=== PATIENT | male | born 1990 | race Caucasian/White ===

== ENCOUNTER 2020-10-09 11:53 | Emergency (ER) | payer SELFPAY ==
[2020-10-09 12:09] VITALS: BP 137/80; PULSE 90; RESP 16; TEMP 37.2; O2SAT 98; BMI 39.9
[2020-10-09 12:18] LABS: UTC Strep Screen (Rapid) Positive (Negative)
--- NOTE | 2020-10-09 12:26 | HMH.EDUTC ---
[facility] Disposition Clinical Impression: Strep throat Disposition: Home, Self-Care Condition on Discharge: Good Instructions: Strep Throat, DI for Strep Throat Additional Instructions: Drink plenty of fluids. Take tylenol or ibuprofen for pain or fever. Take the medications as directed. Follow up with your regular doctor. GO TO THE ER FOR ANY WORSENING SYMPTOMS Throw your tooth brush away and get a new one. Prescriptions: Ondansetron [Zofran 4mg ODT] 4 mg PO Q8HP PRN #12 tab.rapdis PRN Reason: Nausea Transmission Status: Received by [facility] predniSONE [Deltasone 10mg tablet] 10 mg PO BID 3 Days #6 tab Transmission Status: Received by [facility] Penicillin V Potassium 500 mg PO BID 10 Days #20 tab Transmission Status: Received by [facility] Referrals: Provider,Referral, MD [Primary Care Provider] - Forms: Work/School Release Time of Disposition: 12:43 Medical Decision Making - Medical Records Medical records reviewed: No: I reviewed the patient's medical records. - Usama Inquiry Pt receiving controlled substance: No Vital Signs: 10/09/20 12:09 10/09/20 12:41 Temperature 98.9 F 98.9 F Temperature Source Oral Pulse Rate 90 Pulse Rate [Right Brachial] 90 Respiratory Rate 16 16 Blood Pressure 137/80 Blood Pressure [Right Arm] 137/80 Blood Pressure Mean [Right Arm] 99 Blood Pressure Source [Right Arm] Automatic Cuff Blood Pressure Position [Right Arm] Sitting 02 Sat by Pulse Oximetry 98 Oxygen Delivery Method Room Air - Lab Data Lab Results 10/09/20 12:17: Strep [facility] Positive A Orders (Tests/Meds): ED MEDICATIONS Discontinued Medications Generic Name Dose Route Start Last Admin Trade Name Freq PRN Reason Stop Dose Admin Ibuprofen 800 mg 10/09/20 12:49 10/09/20 12:50 Ibuprofen 400 Mg Tablet PO 10/09/20 12:50 800 mg ONCE ONE Administration [facility] HPI - General Stated complaint: has knot in throat Time Seen by Provider: 10/09/20 12:26 Mode of Arrival: Ambulatory Source of Information: Patient Limitations: No Limitations Description of Symptoms (Recalled from Triage Doc. by RN): PATIENT C/O KNOT IN THROAT THAT IS AFFECTING HIS ABILITY TO EAT OR DRINK X 2 DAYS HEENT Symptoms (Recalled from RN notes): Yes Resp Symptoms (Recalled from RN notes): No Skin Symptoms (Recalled from RN notes): No MS Symptoms (Recalled from RN notes): No Functional Status (Recalled from RN notes): WNL - History of Present Illness Provider Complaint: He states that for the past 2 days he has had sore throat and felt very bad. He has had nausea and poor appetite also. He denies any fever. - Related Data Previous Rx's Medication Instructions Recorded Ondansetron [Zofran 4mg ODT] 4 mg PO Q8HP PRN #12 tab.rapdis 10/09/20 Penicillin V Potassium 500 mg PO BID 10 Days #20 tab 10/09/20 predniSONE [Deltasone 10mg tablet] 10 mg PO BID 3 Days #6 tab 10/09/20 Allergies Allergy/AdvReac Type Severity Reaction Status Date / Time No Known Allergies Allergy Verified 10/09/20 12:13 - Worker's Comp Is this a Worker's Comp case?: No [facility] History - Hepatitis A Screen Drug use history?: No High risk sexual behaviors?: No History of sexually transmitted infection?: No Currently employed?: No Childcare worker?: No Do you have indoor plumbing?: Yes Do you have electricity?: Yes Attestation statement:: This patient has been screened for Hepatitis A risk factors. I have reviewed the patient's past medical history: Yes - Social History Alcohol Intake: never Occupational Status: other ROS Obtained: Yes All systems reviewed & no additional complaints Physical Exam - General General appearance: alert, in no apparent distress - Head Head exam: atraumatic, normocephalic, normal inspection - Eye Eye exam: Present: normal appearance, PERRL, EOMI - ENT ENT exam: Presen
[2020-10-09 12:41] VITALS: BP 137/80; PULSE 90; RESP 16; TEMP 37.2; O2SAT 98
== END 2020-10-09 12:56 | disposition home or self-care (01) ==
PROVIDERS: Emergency Provider Nurse Practitioner Family
DX: J02.0 Streptococcal pharyngitis (principal)
CPT/HCPCS: 87880; 99202; G0463

== ENCOUNTER 2022-04-07 22:52 | Emergency (ER) | payer SELFPAY ==
[2022-04-07 22:53] VITALS: BP 144/93; PULSE 81; RESP 18; TEMP 36.9; O2SAT 99; BMI 39.9
--- NOTE | 2022-04-07 23:18 | ECG_ITS ---
APPROVED REPORT Exam: Resting ECG HR:74 bpm ECG Measurements Heart Rate 74 AXES NH 196 P 60 QRSd 86 QRS 58 QT 346 T 4 QTc 373 Conclusion SINUS RHYTHM WITH SINUS ARRHYTHMIA NONSPECIFIC T-WAVE ABNORMALITY BORDERLINE ECG UNCONFIRMED REPORT Electronically signed by : Migel Crocker MD 04/08/2022 18:08:38
[2022-04-07 23:20] VITALS: BP 139/85; BP 143/94; BP 144/82; PULSE 75; PULSE 80; PULSE 82
--- NOTE | 2022-04-07 23:21 | XR_ITS ---
PROCEDURE INFORMATION: Exam: XR Chest Exam date and time: 04/07/2022 11:45 PM Age: 31 years old Clinical indication: Other: Dizziness; Additional info: Dizzy TECHNIQUE: Imaging protocol: Radiologic exam of the chest. Views: 2 views. COMPARISON: No relevant prior studies available. FINDINGS: Lungs: Unremarkable. No consolidation. Pleural spaces: Unremarkable. No pleural effusion. No pneumothorax. Heart/Mediastinum: Unremarkable. No cardiomegaly. Bones/joints: Unremarkable. IMPRESSION: No acute findings.
--- NOTE | 2022-04-07 23:21 | CT_ITS ---
PROCEDURE INFORMATION: Exam: CT Head Without Contrast Exam date and time: 04/08/2022 12:51 AM Age: 31 years old Clinical indication: Dizziness; Additional info: Dizzy, started 04/07/22 am TECHNIQUE: Imaging protocol: Computed tomography of the head without contrast. Radiation optimization: All CT scans at this facility use at least one of these dose optimization techniques: automated exposure control; mA and/or kV adjustment per patient size (includes targeted exams where dose is matched to clinical indication); or iterative reconstruction. COMPARISON: No relevant prior studies available. FINDINGS: Brain: Normal. No hemorrhage. Unremarkable white matter. No mass effect. Cerebral ventricles: No ventriculomegaly. Paranasal sinuses: Visualized sinuses are unremarkable. No fluid levels. Mastoid air cells: Visualized mastoid air cells are well aerated. Bones/joints: Unremarkable. No acute fracture. Soft tissues: Unremarkable. IMPRESSION: No acute intracranial abnormality.
[2022-04-07 23:27] LABS: Basophils # 0.1 K/mm3 (0-0.2); Basophils % 1.1 % (0.1-2.0); Eosinophils # 0.3 K/mm3 (0.0-0.4); Eosinophils % 2.5 % (0.1-12.0); Hematocrit 45.7 % (42.0-52.0); Hemoglobin 15.1 g/dL (14.1-18.0); Lymphocytes # 3.4 K/mm3 (0.7-4.5); Lymphocytes % 31.3 % (10-50); Mean Corpuscular HGB Conc 33.1 g/dL (31.8-35.4); Mean Corpuscular Hemoglobin 30.8 pg (27.0-31.2); Mean Corpuscular Volume 93.1 fl (80-94); Mean Platelet Volume 7.4 fl (7.4-10.4); Monocytes # 0.7 K/mm3 (0.1-1.0); Monocytes % 6.2 % (1.7-9.3); Neutrophils # 6.4 K/mm3 (1.8-7.8); Neutrophils % 58.8 % (37.0-80.0); Platelet Count 413 K/mm3 (142-424); Red Blood Count 4.91 M/mm3 (4.60-6.20); Red Cell Distribution Width 13.5 % (11.5-17.5); White Blood Count 10.9 K/mm3 (4.8-10.8)
[2022-04-07 23:29] LABS: Chloride 100 mmol/L (98-107); Potassium 4.6 mmoL/L (3.5-5.1); Sodium 139 mmol/L (136-145)
[2022-04-07 23:30] VITALS: BP 144/93; PULSE 79; O2SAT 99
[2022-04-07 23:32] LABS: Alanine Aminotransferase 34 U/L (12-78); Albumin Level 4.4 g/dl (3.5-5.0); Albumin/Globulin Ratio 1.2 (1.1-1.8); Alkaline Phosphatase 89 U/L (38-126); Anion Gap 12.6 mEq/L (5-15); Aspartate Amino Transferase 36 U/L (17-59); Bilirubin,Total 0.2 mg/dl (0.2-1.3); Blood Urea Nitrogen 12 mg/dl (9-20); Calcium 9.8 mg/dl (8.4-10.2); Carbon Dioxide 31 mmol/L (22.0-30.0); Creatinine Clearance Estimated 181 mL/min (50-200); Estimated Glomerular Filt Rate 98 ml/min (>60); GFR (African American) 118 ML/MIN (>60); Globulin 3.7 g/dL (1.3-3.2); Glucose 100 mg/dl (74-100); Total Protein,Serum 8.1 g/dl (6.3-8.2)
--- NOTE | 2022-04-07 23:52 | PC.NURSE ---
Pt gone to RAD
[2022-04-07 23:54] LABS: Troponin I < 0.01 ng/ml (0.00-0.034)
--- NOTE | 2022-04-07 23:59 | PC.NURSE ---
Pt back from RAD
[2022-04-08 00:01] VITALS: BP 143/91; PULSE 78; O2SAT 98
[2022-04-08 00:03] LABS: Thyroid Stimulating Hormone 2.48 uIU/mL (0.465-4.68)
[2022-04-08 00:09] LABS: Free T4 (Free Thyroxine) 0.93 ng/dl (0.78-2.19)
[2022-04-08 00:31] VITALS: BP 157/84; PULSE 75; O2SAT 97
[2022-04-08 01:01] VITALS: BP 125/79; PULSE 72; O2SAT 96
--- NOTE | 2022-04-08 01:21 | PC.NURSE ---
Rechecked pt condition. No needs or complaints voiced.
--- NOTE | 2022-04-08 01:37 | HMH.EDDIZZ ---
Discharge Plan Disposition Patient Disposition: Home, Self-Care Chief Complaint: Dizziness Prescriptions Prescriptions: No Action penicillin V potassium 500 MG tablet 500 mg PO BID 10 Days Qty: 20 0RF prednisone 10 MG tablet 10 mg PO BID 3 Days Qty: 6 0RF ondansetron 4 MG tablet,disintegrating 4 mg PO Q8HP PRN (Reason: Nausea) Qty: 12 0RF Referrals Follow up/Referrals: Provider,Referral, MD [Primary Care Provider] - See instructions Clinical Impressions Clinical Impression: Near syncope Instructions Patient Instructions: Dizziness, Nonvertigo Discharge ED Provider: Joseph Montiel Dizzy HPI General Chief Complaint: Dizziness Stated Complaint: Black out (2) BP 143/104 Time Seen by Provider: 04/08/22 01:37 Mode of Arrival: Ambulatory Source of Information: Patient and Medical Record Limitations: No Limitations Description of Symptoms (Recalled from ER Triage Doc. by RN): pt states that he passed out this morning and again at work tonight. before pt passed out pt states he get dizzy and light headed. pt denied any loc History of Present Illness HPI Narrative: dizzyness this am and again at work with near syncope w/o sz or chest pain and no def palpitation MD complaint: dizziness and near syncope Onset (ago): hour(s) Timing: sudden onset Description: lightheadedness History of similar episodes: No History of trauma: No Severity: moderate Associated symptoms: denies other symptoms Related Data Previous Rx's Medication Instructions Recorded ondansetron 4 mg disintegrating 4 mg PO Q8HP PRN Nausea ##12 10/09/20 tablet penicillin V potassium 500 mg 500 mg PO BID 10 days #20 tabs 10/09/20 tablet prednisone 10 mg tablet 10 mg PO BID 3 days #6 tabs 10/09/20 Allergies Allergy/AdvReac Type Severity Reaction Status Date / Time No Known Allergies Allergy Verified 10/09/20 12:13 PFSH PFS Social History Smoking Status: Current every day smoker alcohol intake: never current occupational status: other Travel in the last 8 weeks: None ROS Obtained: Yes All systems reviewed & no additional complaints except as documented Physical Exam General General appearance: alert Head Head exam: normocephalic Eye Eye exam: Present PERRL and EOMI; Absent nystagmus ENT ENT exam: Present normal oropharynx and other (no evid of tongue biting ) Neck Neck exam: Present trachea midline Respiratory Respiratory exam: Absent respiratory distress Cardiovascular Cardiovascular exam: Present regular rate; Absent systolic murmur Abdominal Exam Abdominal exam: Present soft Extremities Exam Extremities exam: Present full ROM Neurological Exam Neurological exam: Present alert, oriented X3, CN II-XII intact and other (gcs=15); Absent motor sensory deficit Skin Skin exam: Absent rash Medical Decision Making Medical Records Medical records reviewed: Yes I reviewed the patient's medical records. Usama Inquiry Pt receiving controlled substance: No Vital Signs: 04/07/22 22:53 04/07/22 23:20 04/07/22 23:30 Temperature 98.5 F Temperature Source Oral Pulse Rate 79 Pulse Rate [Orthostatic Lying] 75 Pulse Rate [Orthostatic Sitting] 80 Pulse Rate [Orthostatic Standing] 82 Pulse Rate [Right] 81 Respiratory Rate 18 Blood Pressure 144/93 H Blood Pressure [Orthostatic Lying] 139/85 Blood Pressure [Orthostatic Sitting] 143/94 H Blood Pressure [Orthostatic Standing] 144/82 H Blood Pressure [Right Arm] 144/93 H Blood Pressure Mean Blood Pressure Mean [Right Arm] 110 02 Sat by Pulse Oximetry 99 99 Oxygen Delivery Method Room Air 04/08/22 00:01 04/08/22 00:31 04/08/22 01:01 Temperature Temperature Source Pulse Rate 78 75 72 Pulse Rate [Orthostatic Lying] Pulse Rate [Orthostatic Sitting] Pulse Rate [Orthostatic Standing] Pulse Rate [Right] Respiratory Rate Blood Pressure 143/91 H 157/84 H 125/79 Blood Pressure [Orthostatic Lying
--- NOTE | 2022-04-08 01:41 | PC.NURSE ---
spoke with rocío OSHEA to notified of holter monitor order
--- NOTE | 2022-04-08 01:45 | PC.NURSE ---
Dr. Montiel at
[2022-04-08 02:11] VITALS: BP 124/73; PULSE 70; RESP 18; TEMP 36.9; O2SAT 97
== END 2022-04-08 02:12 | disposition home or self-care (01) ==
PROVIDERS: Emergency Provider Emergency Medicine
DX: R55 Syncope and collapse (principal)
CPT/HCPCS: 70450; 71046; 80053; 84439; 84443; 84484; 85025; 93005; 93225; 93226; 99285

== ENCOUNTER 2023-07-08 21:21 | Emergency (ER) | payer SELFPAY ==
[2023-07-08 21:29] VITALS: BP 140/93; PULSE 89; RESP 17; TEMP 36.9; O2SAT 99; BMI 42.4
--- NOTE | 2023-07-08 21:45 | HMH.EDGENADL ---
Discharge Plan Disposition Patient Disposition: Home, Self-Care Prescriptions Prescriptions: New ibuprofen 800 mg tablet 800 mg PO TID PRN (Reason: pain) 7 Days Qty: 20 0RF cyclobenzaprine 5 mg tablet 5 mg PO TID PRN (Reason: muscle spasm) 5 Days Qty: 15 0RF No Action penicillin V potassium 500 MG tablet 500 mg PO BID 10 Days Qty: 20 0RF prednisone 10 MG tablet 10 mg PO BID 3 Days Qty: 6 0RF ondansetron 4 MG tablet,disintegrating 4 mg PO Q8HP PRN (Reason: Nausea) Qty: 12 0RF Referrals Follow up/Referrals: Provider,Referral, MD [Primary Care Provider] - See instructions Clinical Impressions Clinical Impression: Lumbosacral strain Stand Alone Forms Stand Alone Forms: Work/School Release Instructions Patient Instructions: DI for Low Back Pain Discharge ED Provider: Kaia Davison General Adult HPI General Chief complaint: Back Pain/Injury Stated complaint: burning pain in lower back Time Seen by Provider: 07/08/23 21:37 Mode of Arrival: Family Vehicle Source of Information: Patient Limitations: No Limitations Description of Symptoms (Recalled from ER Triage Doc. by RN): 33 YO MALE PRESENTS W/CC OF BILAT LUMBAR PAIN THAT RADIATES DOWN HIS RIGHT LEG FOLLOWING LIFTING A LARGE GUN SAFE YESTERDAY. DESCRIBES IT PERSISTENT, NOTHING ALLEVIATES, IBUPROFEN DOESN'T HELP. STATES IT IS BURNING AND SHARP. I DON'T GO TO DR WOODWARD . PMH: HTN IS ALL HE KNOWS. NO PREVIOUS SURGICAL BACK HISTORY. DENIES CHANGE IN BOWEL BLADDER HABITS; History of Present Illness HPI narrative: Is a 33-year-old male presents today with right paraspinal lumbar pain after moving yesterday. States that he did not have any immediate pain and started to hurt after he was finished moving. States he was moving a 400 pounds gun safe which is what he believes caused the pain. Denies any midline pain denies any bowel or bladder incontinence urinary retention lower extremity weakness saddle anesthesia history of injection drug use fevers chills or any other symptoms. States he tried to go to work tonight could not specifically asked for a work excuse as well. Related Data Previous Rx's Medication Instructions Recorded ondansetron 4 mg disintegrating 4 mg PO Q8HP PRN Nausea ##12 10/09/20 tablet penicillin V potassium 500 mg 500 mg PO BID 10 days #20 tabs 10/09/20 tablet prednisone 10 mg tablet 10 mg PO BID 3 days #6 tabs 10/09/20 cyclobenzaprine 5 mg tablet 5 mg PO TID PRN muscle spasm 5 07/08/23 days #15 tabs ibuprofen 800 mg tablet 800 mg PO TID PRN pain 7 days #20 07/08/23 tabs Allergies Allergy/AdvReac Type Severity Reaction Status Date / Time No Known Allergies Allergy Verified 10/09/20 12:13 [facility] Disclaimer: The information contained in this section may have been updated after the patient was seen, as this information can be updated by other users. Social History Smoking Status: Unknown if ever smoked alcohol intake: never current occupational status: other Travel in the last 8 weeks: None ROS Obtained: Yes All systems reviewed & no additional complaints except as documented Physical Exam General General appearance: alert Respiratory Respiratory exam: Present normal lung sounds bilaterally Cardiovascular Cardiovascular exam: Present regular rate Back Exam Back exam: Present other (No midline lumbar spine tenderness there is tenderness of the paraspinal musculature in the right lumbosacral region normal neurovascular exam distal to this) Neurological Exam Neurological exam: Present alert Medical Decision Making Usama Inquiry Pt receiving controlled substance: No Vital Signs: 07/08/23 21:29 Temperature 98.5 F Temperature Source Oral Pulse Rate [Right Brachial] 89 Respiratory Rate 17 Blood Pressure [Right Arm] 140/93 H Blood Pressure Mean [Right Arm] 108 Blood Pressure Source [Right Arm] Automatic Cuff Blood Pressure Position [Right Arm] Sitting 02 Sat by Pulse Oximetry 99 Oxygen Delivery Method Room Air Orders (Tests/Meds): ED MEDICATIONS Generic Name Dose Route Start Last Admin Trade Name Arturo PRN Reason Stop Dose Admin Cyclobenzaprine HCl 5 mg 07/08/23 21:42 Cyclobenzaprine 10mg Tablet PO 07/08/23 21:43 ONCE ONE Ibuprofen 800 mg 07/08/23 21:42 Ibuprofen 400 Mg Tablet PO 07/08/23 21:43 ONCE ONE Lidocaine 1 each 07/08/23 21:42 Lidocaine 5% Transdermal Patch TP 07/08/23 21:43 ONCE ONE Medical Decision Narrative: 33-year-old with no red flags from history or physical standpoint regarding nontraumatic lower back pain. This is consistent with lumbosacral strain with heavy moving of objects x-ray. Ibuprofen Flexeril topical lidocaine were given to the emergency department prescription given to him he was advised to take 2 days off of work and to return with any worsening symptoms as discussed. Patient was discharged in stable condition Critical Care Critical Care Time Critical Care Time: No
[2023-07-08] MEDS: LIDOCAINE 5% TRANSDERMAL PATCH 1 EACH TP (22:03)
[2023-07-08] MEDS: CYCLOBENZAPRINE 10MG TABLET 5 MG PO (22:03)
[2023-07-08] MEDS: IBUPROFEN 400 MG TABLET 800 MG PO (22:04)
[2023-07-08 22:12] VITALS: BP 140/97; PULSE 89; RESP 17; TEMP 36.9; O2SAT 99
== END 2023-07-08 22:13 | disposition home or self-care (01) ==
PROVIDERS: Emergency Provider Student in an Organized Health Care Education/Training Program
DX: S39.012A Strain of muscle, fascia and tendon of lower back, initial encounter (principal); M79.604 Pain in right leg; X50.0XXA Overexertion from strenuous movement or load, initial encounter
CPT/HCPCS: 99283

== ENCOUNTER 2024-09-29 09:42 | Emergency (ER) | payer BC, SELFPAY ==
[2024-09-29 10:03] VITALS: BP 150/94; PULSE 74; RESP 18; TEMP 36.9; O2SAT 97; BMI 44.1
--- NOTE | 2024-09-29 10:21 | ED_ITS ---
Discharge Plan Disposition Patient Disposition: Home, Self-Care Prescriptions Prescriptions: New prednisone 20 mg tablet 40 mg PO DAILY 5 Days Qty: 10 0RF methocarbamol 750 mg tablet 1,500 mg PO TID 5 Days Qty: 30 0RF Discontinued penicillin V potassium 500 MG tablet 500 mg PO BID 10 Days Qty: 20 0RF prednisone 10 MG tablet 10 mg PO BID 3 Days Qty: 6 0RF cyclobenzaprine 5 mg tablet 5 mg PO TID PRN (Reason: muscle spasm) 5 Days Qty: 15 0RF No Action ondansetron 4 MG tablet,disintegrating 4 mg PO Q8HP PRN (Reason: Nausea) Qty: 12 0RF ibuprofen 800 mg tablet 800 mg PO TID PRN (Reason: pain) 7 Days Qty: 20 0RF Referrals Follow up/Referrals: Provider,Referral, MD [Primary Care Provider] - See instructions Activity Restrictions/Add. Instructions Additional Instructions/Restrictions: Prednisone each day after waking up. Robaxin 3 times daily for spasms. Robaxin can cause you to feel drowsy. Do not drive, operate heavy machinery, or engage in any activity that may make you tired, fall asleep, and because harm to yourself or others while taking this medication. Call your family doctor to establish care for this visit to the emergency department and schedule follow-up within 48 hours to ensure improvement. If you have any worsening of your condition or any other concerning signs or symptoms, return to the emergency department or your primary care doctor for further evaluation. Clinical Impressions Clinical Impression: Lower back pain Instructions Patient Instructions: DI for Low Back Pain Print Language Print Language: Romansh Discharge ED Provider: Godwin Cifuentes General Adult HPI General Chief complaint: Back Pain/Injury Stated complaint: Pain in Lower back-no accident Time Seen by Provider: 09/29/24 10:03 Mode of Arrival: Ambulatory Source of Information: Patient Description of Symptoms (Recalled from ER Triage Doc. by RN): pt presents to the ED with lower back pain that began on Thursday when he woke up. pt reports that the pain radiates down legs. Pt states the pain just come and goes . No trouble with urination at the time. History of Present Illness HPI narrative: Please note that above description of symptoms, in this electronic medical record under categorization of recalled from ER triage doctor by RN are reflective of an initial nursing assessment, however, is not reflective of my full history and physical exam that was personally taken and clarified. Consequentially, this preceding description of symptoms, which may include the patient's categorized chief complaint in the EMR, do not reflect my personal clinical impression, and the ultimate description of history of present illness and patient stated complaints should be deferred to this section of the note. Unless stated otherwise or congruent with this section of the note, additional signs, symptoms, or incongruence should be interpreted as inaccurate with my clinical impression. Related Data Previous Rx's ?Medication ?Instructions ?Recorded ondansetron 4 mg disintegrating 4 mg PO Q8HP PRN Nausea ##12 10/09/20 tablet ibuprofen 800 mg tablet 800 mg PO TID PRN pain 7 days #20 07/08/23 tabs methocarbamol 750 mg tablet 1,500 mg (2 x 750 mg) PO TID 5 09/29/24 days #30 tabs prednisone 20 mg tablet 40 mg (2 x 20 mg) PO DAILY 5 days 09/29/24 #10 tabs Allergies Allergy/AdvReac Type Severity Reaction Status Date / Time No Known Allergies Allergy Verified 10/09/20 12:13 [facility] Disclaimer: The information contained in this section may have been updated after the patient was seen, as this information can be updated by other users. Social History Smoking Status: Current every day smoker alcohol intake: never current occupational status: other Travel in the last 8 weeks?: None Have you lived/traveled outside [place] in past 30 days?: No Contact w/someone who lives/traveled outside US past 30 days?: No Exposure to someone with infectious disease in past 14 days?: No Do you have a fever (greater than 100.4 F or 38 C)?: No Have you tested positive for COVID-19?: No Exposed to someone with COVID-19 in past 14 days?: No Do you have a sore throat?: No Do you have a cough?: No Do you have any weakness?: No Do you have any diarrhea?: No Are you experiencing any unusual bleeding?: No Do you have any muscle aches/pain?: Yes Do you have any abdominal pain?: No Are you experiencing loss of taste or smell?: No ROS Obtained: Yes All systems reviewed & no additional complaints except as documented Physical Exam General General appearance: alert Head Head exam: atraumatic and normocephalic Eye Eye exam: Present normal appearance, PERRL and EOMI Neck Neck exam: Present normal inspection, full ROM and trachea midline Respiratory Respiratory exam: Absent respiratory distress, wheezes, stridor, accessory muscle use or prolonged expiratory phase Cardiovascular Cardiovascular exam: Present other (Pulses equal symmetric in upper and lower extremities) Abdominal Exam Abdominal exam: Present soft; Absent distention, tenderness or pulsatile mass Extremities Exam Extremities exam: Absent edema Neurological Exam Neurological exam: Present alert, oriented X3 and CN II-XII intact; Absent motor sensory deficit Skin Skin exam: Present warm and dry; Absent diaphoresis or erythema Medical Decision Making Medical Records Medical records reviewed: Yes I reviewed the patient's medical records. Screening: Per USPSTF and CDC recommendations, given the prevalence of disease in our region, it is our hospital?s policy to screen for HIV and viral Hepatitis for all patients aged 18 and over and those with ongoing risk factors. Usama Inquiry Pt receiving controlled substance: No Usama was queried for this patient: No Vital Signs: 09/29/24 10:03 Temperature 98.4 F Temperature Source Oral Pulse Rate [Right] 74 Respiratory Rate 18 Blood Pressure [Right Arm] 150/94 H Blood Pressure Mean [Right Arm] 112 Blood Pressure Source [Right Arm] Automatic Cuff Blood Pressure Position [Right Arm] Supine 02 Sat by Pulse Oximetry 97 Oxygen Delivery Method Room Air Orders (Tests/Meds): ED MEDICATIONS Discontinued Medications Generic Name Dose Route Start Last Admin Trade Name Bryantq PRN Reason Stop Dose Admin Dexamethasone 10 mg 09/29/24 10:20 09/29/24 10:48 Dexamethasone 4mg Tablet PO 09/29/24 10:21 10 mg ONCE ONE Administration Ketorolac Tromethamine 15 mg 09/29/24 10:20 09/29/24 10:47 Ketorolac 30mg/Ml Vial IM 09/29/24 10:21 15 mg ONCE ONE Administration Methocarbamol 1,500 mg 09/29/24 10:20 09/29/24 10:48 Methocarbamol 500mg Tablet PO 09/29/24 10:21 1,500 mg ONCE ONE Administration Medical Decision Narrative: 34-year-old male presenting with back pain. He has back pain in the past. States has been going on the last few days and has not been getting better. Radiating from the middle of his lower back to bilateral hips. No loss of continence of bowel or bladder, no saddle anesthesia, no weakness in his legs. States that twisting, changes in position make it worse, laying down makes it better. Has not taken anything for the pain, came in for further evaluation. On arrival, very clinically well-appearing male no acute distress. He does have midline spinal tenderness in his lumbosacral spine, but no outward signs of abnormality. Ambulatory, range of motion of back appears to be normal. Paraspinal muscle tightness consistent with potential spasm. Differential includes radiculopathy, neuropathy, osteoarthritis, degenerative disc disease, less likely to be conus medullaris, cauda equina, epidural abscess or hematoma, among others. Patient was given Toradol, dexamethasone, Robaxin with mild initial relief. Reassurance given and steroid will likely help improve patient's pain further as it begins to kick in. He voiced his understanding. Discharged in hemodynamically stable condition and appropriate for outpatient management. Fiscal Officer disclaimer Much of this encounter note is an electronic systems trainer spoken language to printed text. Electronic systems trainer of the spoken language may permit errors. Although I have reviewed the note, some errors may still exist. Critical Care Critical Care Time Critical Care Time: No
[2024-09-29] MEDS: KETOROLAC 30MG/ML VIAL 15 MG IM (10:47)
[2024-09-29] MEDS: DEXAMETHASONE 4MG TABLET 10 MG PO (10:48)
[2024-09-29] MEDS: METHOCARBAMOL 500MG TABLET 1500 MG PO (10:48)
[2024-09-29 11:00] VITALS: BP 148/85; PULSE 72; RESP 19; TEMP 36.4; O2SAT 97
== END 2024-09-29 11:02 | disposition home or self-care (01) ==
PROVIDERS: Emergency Provider Emergency Medicine
DX: M54.50 Low back pain, unspecified (principal)
CPT/HCPCS: 96372; 99283; J1885; J8540

== ENCOUNTER 2025-02-14 11:06 | Emergency (ER) | payer BC, SELFPAY ==
[2025-02-14 11:08] VITALS: BP 183/99; PULSE 63; RESP 18; TEMP 36.7; O2SAT 99; BMI 43.2
--- NOTE | 2025-02-14 11:40 | PC.NURSE ---
DR AREVALO AT BEDSIDE
--- NOTE | 2025-02-14 11:44 | CT_ITS ---
FINAL REPORT TECHNIQUE: Axial images through the abdomen and pelvis were performed without contrast.This study was performed with techniques to keep radiation doses as low as reasonably achievable, (ALARA). Individualized dose reduction techniques using automated exposure control or adjustment of mA and/or kV according to the patient's size were employed. CLINICAL HISTORY: right flank pain, poss kidney stone COMPARISON: 04/07/2017 FINDINGS: ABDOMEN: There is a oval, right middle lobe pulmonary nodule seen on image #2 measuring up to 9 mm. The heart size is normal. Limited images of the liver demonstrate fatty infiltration. The spleen is normal. No adrenal mass is identified. The aorta is normal in caliber. There is no significant free fluid or adenopathy. There is bilateral nephrolithiasis, worse from prior exam measuring up to 3 mm. However, no obstructing stone or hydronephrosis is seen. Bowel is unremarkable. PELVIS: The appendix is normal. The urinary bladder and prostate are unremarkable. There is no significant free fluid or adenopathy. IMPRESSION: Bilateral nephrolithiasis without obstructing stone disease. 9 mm pulmonary nodule. Recommend follow-up chest CT. Reviewed, Interpreted and Dictated by Zaira Yun MD Transcribed by Rowan Sims Authenticated and [facility]
--- NOTE | 2025-02-14 11:47 | [facility].EDGENADL ---
Discharge Plan Disposition Patient Disposition: Home, Self-Care Prescriptions Prescriptions: New tamsulosin [Flomax] 0.4 mg capsule 0.4 mg PO DAILY Qty: 3 0RF No Action ondansetron 4 MG tablet,disintegrating 4 mg PO Q8HP PRN (Reason: Nausea) Qty: 12 0RF ibuprofen 800 mg tablet 800 mg PO TID PRN (Reason: pain) 7 Days Qty: 20 0RF prednisone 20 mg tablet 40 mg PO DAILY 5 Days Qty: 10 0RF methocarbamol 750 mg tablet 1,500 mg PO TID 5 Days Qty: 30 0RF Referrals Follow up/Referrals: Billy Serra MD [Staff Physician, Urology] - See instructions ProviderCornel MD [Primary Care Provider, Medical] - See instructions Mikie Bill MD [Physician, Pulmonology] - See instructions Activity Restrictions/Add. Instructions Additional Instructions/Restrictions: Your workup today showed blood in your urine but no evidence of a urinary tract infection. It is likely that you passed a kidney stone but there is no evidence of a kidney stone blocking your ureters. You do have kidney stones within the kidneys, however these are unlikely to be causing your symptoms. At home, you can take Tylenol, ibuprofen every 6 hours as needed to help with pain. You are also being prescribed Flomax. Continue to hydrate well by drinking plenty of fluids. I am giving you referral to Dr. Serra with urology given your recurrent kidney stones. Over the next few days, while urinating, pee into the strainer provided to you and if a stone is produced, you can take it to the appointment with your urologist and they can send it for testing. You were also incidentally found to have a pulmonary nodule. I am referring you to Dr. Bill, our executive assistant to president, to follow this up. Clinical Impressions Clinical Impression: Acute right flank pain, Hematuria, Incidental pulmonary nodule Instructions Patient Instructions: DI for Low Back Pain Print Language Print Language: Dutch Discharge ED Provider: Janusz Luo Adult HPI General Chief complaint: Back Pain/Injury Stated complaint: Pain in Lower R side Time Seen by Provider: 02/14/25 11:39 Mode of Arrival: Ambulatory Source of Information: Patient Description of Symptoms (Recalled from ER Triage Doc. by RN): PT REPORTS RIGHT LOWER BACK PAIN THAT IS SIMILAR TO KIDNEY STONES HE HAS HAD. PT DENIES BLOOD IN URINE, FEVER OR CHILLS. PAIN STARTED ABOUT 0600, INTERMITTENT History of Present Illness HPI narrative: Nilesh Lazo is a 34-year-old male with a past medical history of kidney stones who presents to the emergency department for complaints of right flank pain concerning for kidney stone. Patient states that he was woken from sleep with severe right-sided flank pain at 6:00 this morning. He states that he took 800 g of ibuprofen at 8 AM that has not helped. He states that his urine appears dark today. He states that this feels like previous kidney stones. He denies any abdominal pain. He denies any dysuria. He denies any chest pain or shortness of breath. He denies any fevers. Related Data Previous Rx's ?Medication ?Instructions ?Recorded ondansetron 4 mg disintegrating 4 mg PO Q8HP PRN Nausea ##12 10/09/20 tablet ibuprofen 800 mg tablet 800 mg PO TID PRN pain 7 days #20 07/08/23 tabs methocarbamol 750 mg tablet 1,500 mg (2 x 750 mg) PO TID 5 09/29/24 days #30 tabs prednisone 20 mg tablet 40 mg (2 x 20 mg) PO DAILY 5 days 09/29/24 #10 tabs tamsulosin 0.4 mg capsule (Flomax) 0.4 mg PO DAILY #3 caps 02/14/25 Allergies Allergy/AdvReac Type Severity Reaction Status Date / Time No Known Allergies Allergy Verified 10/09/20 12:13 [facility] Disclaimer: The information contained in this section may have been updated after the patient was seen, as this information can be updated by other users. Social History Smoking Status: Current every day smoker alcohol intake: never current occupational status: other Travel in the last 8 weeks?: None Have you lived/traveled outside [place] in past 30 days?: No Contact w/someone who lives/traveled outside [place] past 30 days?: No Exposure to someone with infectious disease in past 14 days?: No Do you have a fever (greater than 100.4 F or 38 C)?: No Have you tested positive for COVID-19?: No Exposed to someone with COVID-19 in past 14 days?: No Do you have a sore throat?: No Do you have a cough?: No Do you have any weakness?: No Do you have any diarrhea?: No Are you experiencing any unusual bleeding?: No Do you have any muscle aches/pain?: No Do you have any abdominal pain?: No Are you experiencing loss of taste or smell?: No ROS Obtained: Yes Systems reviewed as appropriate & no additional complaints except as documented Physical Exam General General appearance: alert and in no apparent distress Head Head exam: atraumatic Eye Eye exam: Present normal appearance ENT ENT exam: Present normal external ear exam Neck Neck exam: Present full ROM Chest Chest inspection: Present symmetric chest wall rise Respiratory Respiratory exam: Present normal lung sounds bilaterally; Absent respiratory distress Cardiovascular Cardiovascular exam: Present regular rate and normal rhythm Abdominal Exam Abdominal exam: Present soft; Absent tenderness or guarding exam: Present deferred Extremities Exam Extremities exam: Present normal inspection Back Exam Back exam: Present normal inspection and CVA tenderness (R); Absent CVA tenderness (L) Neurological Exam Neurological exam: Present alert and oriented X3 Psychiatric Psychiatric exam: Present normal affect Skin Skin exam: Present warm and dry Medical Decision Making Medical Records Screening: Per USPSTF and CDC recommendations, given the prevalence of disease in our region, it is our hospital?s policy to screen for HIV and viral Hepatitis for all patients aged 18 and over and those with ongoing risk factors. [place] Inquiry Pt receiving controlled substance: No Vital Signs: 02/14/25 11:08 Temperature 98.1 F Temperature Source Oral Pulse Rate [Radial] 63 Respiratory Rate 18 Blood Pressure [Right Arm] 183/99 H Blood Pressure Mean [Right Arm] 127 Blood Pressure Source [Right Arm] Automatic Cuff Blood Pressure Position [Right Arm] Sitting 02 Sat by Pulse Oximetry 99 Oxygen Delivery Method Room Air Lab Data Lab Results 02/14/25 11:48: Urine Color Yellow, Urine Appearance Sl cloudy, Urine pH 6.0, Ur Specific Berger 1.025, Urine Protein Trace, Urine Glucose (UA) Negative, Urine Ketones Trace, Urine Blood 3+ A, Urine Nitrate Negative, Urine Bilirubin 1+ A, Urine Urobilinogen 0.2, Ur Leukocyte Esterase Negative, Urine RBC 20-50, Urine WBC Occasional, Ur Squamous Epith Cells Occasional, Calcium Oxalate Crystal Trace, Urine Bacteria 1+ 02/14/25 11:52: WBC 8.2, RBC 4.44 L, Hgb 13.1 L, Hct 40.5 L, MCV 91.2, MCH 29.5, MCHC 32.3, RDW 13.3, Plt Count 330, MPV 8.8, Neut % (Auto) 63.2, Lymph % (Auto) 26.7, [place] % (Auto) 6.7, Eos % (Auto) 2.6, Baso % (Auto) 0.6, Neut # (Auto) 5.2, Lymph # (Auto) 2.2, [place] # (Auto) 0.6, Eos # (Auto) 0.2, Baso # (Auto) 0.1, Sodium 138, Potassium 4.0, Chloride 105, Carbon Dioxide 23, Anion Gap 14.0, BUN 16, Creatinine 1.00, Estimated Creat Clear 90, Estimated GFR 85, Est GFR ( Amer) 103, Glucose 138 H, Calcium 9.3, Total Bilirubin 0.5, AST 77 H, ALT 40, Alkaline Phosphatase 92, C-Reactive Protein 20.7 H, Total Protein 7.9, Albumin 4.2, Globulin 3.7 H, Albumin/Globulin Ratio 1.1, Lipase 86, HCV Ab ROSIO w/Rflx PCR Qn Negative, HIV Ag/Ab Combo Qual Negative 02/14/25 11:52 02/14/25 11:52 Orders (Tests/Meds): ED MEDICATIONS Discontinued Medications Generic Name Dose Route Start Last Admin Trade Name Freq PRN Reason Stop Dose Admin Morphine Sulfate 4 mg 02/14/25 11:44 02/14/25 12:02 Morphine 4mg/Ml Syringe IV 02/14/25 11:45 4 mg ONCE ONE Administration Ondansetron HCl 4 mg 02/14/25 11:44 02/14/25 12:02 Ondansetron 4mg/2ml Vial IV 02/14/25 11:45 4 mg ONCE ONE Administration ORDERS Category Date Time Status CT abdomen pelvis wo con Stat Cat Scan 02/14/25 11:44 Completed CBC w/Auto Diff [Complete Blood Count Auto Diff] Stat Lab 02/14/25 11:52 Completed CMP [Comprehensive Metabolic Panel] Stat Lab 02/14/25 11:52 Completed CRP [C-Reactive Protein] Stat Lab 02/14/25 11:52 Completed HIV Combo Stat Lab 02/14/25 11:52 Completed Hepatitis C Ab Qual. W/ RFX Stat Lab 02/14/25 11:52 Completed Lipase Stat Lab 02/14/25 11:52 Completed UA [Urinalysis and Microscopic] Stat Lab 02/14/25 11:48 Completed Medical Decision Narrative: Nilesh Lazo is a 34-year-old male with a past medical history of kidney stones who presents to the emergency department for complaints of right flank pain concerning for kidney stone. Patient states that he was woken from sleep with severe right-sided flank pain at 6:00 this morning. He states that he took 800 g of ibuprofen at 8 AM that has not helped. He states that his urine appears dark today. He states that this feels like previous kidney stones. He denies any abdominal pain. He denies any dysuria. He denies any chest pain or shortness of breath. He denies any fevers. On arrival, patient is hypertensive with blood pressure 183/99 but improved to 138/84. Afebrile. Breathing comfortably on room air with appropriate oxygen saturation. Physical exam, stated above, revealed uncomfortable. Male in no respiratory distress. He has mild right sided CVA tenderness. No left CVA tenderness. Abdomen is soft, nontender nondistended. Physical exam is otherwise unremarkable. Differential diagnosis includes, but is not limited to: Ureterolithiasis, pyelonephritis, colitis, muscle strain, among others. The most morbid conditions were considered and workup was based on these. Workup in the emergency department included: CT abdomen pelvis without contrast, CBC with differential, CMP, CRP, lipase, urinalysis. Patient's symptoms were treated with 4 mg of IV morphine and 4 mg of IV Zofran Laboratory studies show no leukocytosis, stably low hemoglobin of 13.1 and hematocrit of 40.5. CMP unremarkable nonactionable. Mildly elevated AST of 77 but liver enzymes grossly unremarkable nonactionable. CRP elevated at 20.7, lipase normal at 86. Urinalysis shows 20-50 red blood cells but no evidence of infection with occasional white blood cells. 1+ bilirubin. Negative leukocyte esterase and negative nitrate. CT abdomen pelvis shows bilateral nephro lithiasis without obstructing stone. These measure up to 3 mm but no obstructing stone or hydronephrosis is seen. Patient does have an incidentally found 9 mm pulmonary nodule. Given patient's RBCs in his urine, is likely that he passed a kidney stone. On reassessment, patient is sleeping comfortably and reports improvement in his pain. Will prescribe Flomax and encouraged him to take Tylenol and ibuprofen at home and to continue hydrating. Given he has had recurrent kidney stones, will also give referral to Dr. Serra with urology. For the pulmonary nodule, we will give him referral with executive assistant to president, Dr. Bill. Return precautions were given. All questions were answered. He demonstrated understanding and was in agreement this plan. He was then discharged from the emergency department in stable condition. Critical Care Critical Care Time Critical Care Time: No
[2025-02-14] MEDS: ONDANSETRON 4MG/2ML VIAL 4 MG IV (12:02)
[2025-02-14] MEDS: MORPHINE 4MG/ML SYRINGE 4 MG IV (12:02)
[2025-02-14 12:03] LABS: Hematocrit 40.5 % (42.0-52.0); Hemoglobin 13.1 g/dL (14.1-18.0); Immature Granulocytes % 0.2 %; Mean Corpuscular HGB Conc 32.3 g/dL (31.8-35.4); Mean Corpuscular Hemoglobin 29.5 pg (27.0-31.2); Mean Corpuscular Volume 91.2 fl (80-94); Nucleated Red Blood Cells % 0 %; Platelet Count 330 K/mm3 (142-424); Red Blood Count 4.44 M/mm3 (4.60-6.20); Red Cell Distribution Width-SD 45.0 fL; White Blood Count 8.2 K/mm3 (4.8-10.8)
[2025-02-14 12:10] LABS: Albumin Level 4.2 g/dl (3.5-5.0); Chloride 105 mmol/L (98-107)
[2025-02-14 12:11] LABS: Potassium 4.0 mmoL/L (3.5-5.1); Sodium 138 mmol/L (136-145)
[2025-02-14 12:13] LABS: Alanine Aminotransferase 40 U/L (12-78); Albumin/Globulin Ratio 1.1 (1.1-1.8); Alkaline Phosphatase 92 U/L (38-126); Anion Gap 14.0 mEq/L (5-15); Aspartate Amino Transferase 77 U/L (17-59); Bilirubin,Total 0.5 mg/dl (0.2-1.3); Blood Urea Nitrogen 16 mg/dl (9-20); Carbon Dioxide 23 mmol/L (22.0-30.0); Creatinine Clearance Estimated 90 mL/min (50-200); Creatinine,Serum 1.00 mg/dl (0.66-1.25); Estimated Glomerular Filt Rate 85 ml/min (>60); GFR (African American) 103 ML/MIN (>60); Globulin 3.7 g/dL (1.3-3.2); Total Protein,Serum 7.9 g/dl (6.3-8.2)
[2025-02-14 12:14] LABS: Calcium 9.3 mg/dl (8.4-10.2); Glucose 138 mg/dl (74-100); Lipase 86 U/L (23-300)
[2025-02-14 12:39] LABS: C-Reactive Protein 20.7 mg/L (0-4)
[2025-02-14 13:03] LABS: Hepatitis C Ab Qual. W/ RFX NEGATIVE (Negative)
[2025-02-14 13:15] LABS: Microscopic, Urine URINE MICROSCOPIC (MICROSCOPIC)
[2025-02-14 13:19] LABS: Color,Urine YELLOW (Yellow); Glucose,Urine (UA) Negative (Negative); Ketones,Urine TRACE (Negative); Leukocyte Esterase,Urine Negative (Negative); PH,Urine 6.0 (5.0-8.5); Protein,Urine TRACE (Negative); Specific Gravity, Urine 1.025 (1.005-1.030); Urobilinogen,Urine 0.2 EU/dl (0.2)
[2025-02-14 13:24] LABS: Bilirubin,Urine 1+ (Negative)
[2025-02-14 13:26] LABS: Bacteria,Urine 1+ /lpf; Calcium Oxalate Crystals,Urine Trace /lpf; RBC,Urine 20-50 #/hpf (0-3); Squamous Epithelial Cell,Urine Occasional #/hpf (0-5); WBC,Urine Occasional #/hpf (0-3)
[2025-02-14 14:05] VITALS: BP 125/97; PULSE 57; RESP 20; TEMP 36.7; O2SAT 98
== END 2025-02-14 14:07 | disposition home or self-care (01) ==
PROVIDERS: Emergency Provider Student in an Organized Health Care Education/Training Program
DX: R10.31 Right lower quadrant pain (principal); M54.59 Other low back pain; R31.9 Hematuria, unspecified; R91.1 Solitary pulmonary nodule; N20.0 Calculus of kidney; F17.210 Nicotine dependence, cigarettes, uncomplicated; Z87.442 Personal history of urinary calculi
CPT/HCPCS: 74176; 80053; 81001; 83690; 85025; 86140; 86803; 87389; 96374; 96375; 99283; 99284; J2270; J2405